=== PATIENT | female | born 1950 | race Caucasian/White ===

== ENCOUNTER 2019-05-14 08:18 | Day surgery (SDC) | payer MEDICARE, OTHER ==
[~2019-05-14] VITALS: Ht 165.1 cm; Wt 75.3 kg
[~2019-05-14 08:18] MED LIST: ACET-2065 PO; ALBU8.5H8 INH; BUDE10.22 INH; BUPIVACAINE/PF 0.5% ONE; CALC1CAP8 PO; CEFD300C37 PO; CHOL500015 PO; CYCL1DRO EACHEYE; EMBREL SC; ENOX80SY5 SQ; EPINEPHRINE 1 MG/ML, 1ML ONE; ESTR0.6246 PO; ESTR1.5T4 PO; ETAN50DI2 SC; FLUT16SP24 NS; FOLI-17 PO; HYDR200T72 PO; LEUC5TAB12 PO; MENT222L TP; METH25VI SC; METH25VI22 SC; MULT-208 PO; MULT-658 PO; MUPI15CR9 TP; NIFE-7 PO; OMEP20TA62 PO; ONDA-89 PO; ONDA4TAB10 PO; PREG25CA PO; PREG50CA PO; PYRI60TA PO; TOCI162D SC; TRAM-47 PO; TRAM50TA2 PO; ZOLE5INF IV; gentamicin NS; magnesium potassium PO
[2019-05-14 08:47] VITALS: BP 146/84
[2019-05-14] MEDS ORDERED: MIDAZOLAM 1 MG/ML, 2ML ONE (09:24)
[2019-05-14] MEDS ORDERED: FENTANYL PF 250 MCG/5ML ONE (09:24)
[2019-05-14] MEDS ORDERED: SCOPOLAMINE 1MG PATCH TD ONE ×2 (09:49→10:00)
[2019-05-14] MEDS ORDERED: FENTANYL PF 100 MCG/2ML ONE ×2 (12:40→13:06)
[2019-05-14] MEDS: FENTANYL PF 100 MCG/2ML IV PRN ×4 (12:41→13:15)
[2019-05-14] MEDS ORDERED: OXYcodone 5 MG/5 ML ORAL.SOL UDC ONE (12:51)
[2019-05-14] MEDS ORDERED: MEPERIDINE/PF 25MG/ML,1ML ONE (12:51)
[2019-05-14] MEDS ORDERED: MEPERIDINE/PF 25MG/ML,1ML IVPush PRN (13:30)
[2019-05-14] MEDS ORDERED: OXYcodone 5 MG/5 ML ORAL.SOL UDC PO PRN (13:30)
[2019-05-14] MEDS ORDERED: KETOROLAC 30 MG/1 ML IVPush ONE (15:00)
[2019-05-14] MEDS ORDERED: ROCURONIUM 10MG/ML,5ML ONE (15:36)
[2019-05-14] MEDS ORDERED: SUCCINYLCHOLINE 20 MG/ML, 10ML ONE (15:36)
[2019-05-14] MEDS ORDERED: CEFAZOLIN 1,000 MG ONE (15:36)
[2019-05-14] MEDS ORDERED: EPHEDRINE 50 MG/ML, 1ML ONE (15:36)
== END 2019-05-14 16:55 | disposition home or self-care (01) ==
LOC: OR 08:18
PROVIDERS: ATTEND Podiatrist Foot & Ankle Surgery
DX: T84.84XA Pain due to internal orthopedic prosthetic devices, implants and grafts, initial encounter (principal); S92.352K Displaced fracture of fifth metatarsal bone, left foot, subsequent encounter for fracture with nonunion; M19.072 Primary osteoarthritis, left ankle and foot; M96.0 Pseudarthrosis after fusion or arthrodesis; Z79.899 Other long term (current) drug therapy; M06.9 Rheumatoid arthritis, unspecified; Z88.2 Allergy status to sulfonamides; Z88.5 Allergy status to narcotic agent; Z91.041 Radiographic dye allergy status; Z91.013 Allergy to seafood; Z86.718 Personal history of other venous thrombosis and embolism; Z86.711 Personal history of pulmonary embolism; X58.XXXD Exposure to other specified factors, subsequent encounter; Y83.8 Other surgical procedures as the cause of abnormal reaction of the patient, or of later complication, without mention of misadventure at the time of the procedure
CPT/HCPCS: 28322; 29891; 64445; 64447; 73620; C1713; C1760; C1762; C1776; J0330; J0690; J2175; J2250; J3010; 76000; J0171